=== PATIENT | female | born 1995 | race Caucasian/White ===

== ENCOUNTER 2016-03-10 06:24 | Emergency (ER) | payer MEDICAID ==
[2016-03-10 06:40] VITALS: BP 128/95
[2016-03-10 07:09] LABS: Basophils % (Auto) 0.4 % (0.0-1.8); Eosinophils % (Auto) 0.3 % (0.0-4.3); Hematocrit 41.3 % (30.3-42.9); Hemoglobin 13.9 gm/dl (10.1-14.3); Mean Corpuscular HGB Conc 34 % (30-34); Mean Corpuscular Hemoglobin 30 pg (28-32); Mean Corpuscular Volume 88 fl (79-97); Platelet Count 314 K/mm3 (140-440); Red Blood Count 4.69 M/mm3 (3.65-5.03); Red Cell Distribution Width 12.9 % (13.2-15.2)
[2016-03-10 07:24] LABS: Alanine Aminotransferase 49 units/L (7-56); Albumin 4.8 g/dL (3.9-5); Albumin/Globulin Ratio 1.1 %; Alkaline Phosphatase 72 units/L (35-129); Anion Gap 26 mmol/L; BUN/Creatinine Ratio 13.33; Bilirubin,Total 1.1 mg/dL (0.1-1.2); Blood Urea Nitrogen 8 mg/dL (7-17); Calcium 10.2 mg/dL (8.4-10.2); Carbon Dioxide 14 mmol/L (22-30); Chloride 97.1 mmol/L (98-107); Glucose 90 mg/dL (65-100); Lipase 20 units/L (13-60); Potassium 3.9 mmol/L (3.6-5.0); Sodium 133 mmol/L (137-145)
--- NOTE | 2016-03-13 01:23 | ED Elopement Review ---
ED Pt Elopement review - Results review Lab results: Laboratory Tests 03/10/16 03/10/16 03/10/16 06:55 06:55 06:55 WBC 12.0 H RBC 4.69 Hgb 13.9 Hct 41.3 MCV 88 MCH 30 MCHC 34 RDW 12.9 L Plt Count 314 Lymph % (Auto) 27.3 [place] % (Auto) 8.1 H Eos % (Auto) 0.3 Baso % (Auto) 0.4 Lymph # 3.3 [place] # 1.0 H Eos # 0.0 Baso # 0.0 Seg Neutrophils % 63.9 Seg Neutrophils # 7.7 Sodium 133 L Potassium 3.9 Chloride 97.1 L Carbon Dioxide 14 L Anion Gap 26 BUN 8 Creatinine 0.6 L Estimated GFR > 60 BUN/Creatinine Ratio 13.33 Glucose 90 Calcium 10.2 Total Bilirubin 1.1 AST 42 H ALT 49 Alkaline Phosphatase 72 Total Protein 9.0 H Albumin 4.8 Albumin/Globulin Ratio 1.1 Lipase 20 HCG, Qual Positive - Call Back decision Pt Call Back Decision: Pt to F/U with PMD (tachycardia, low bicarb, will likely benefit from hydration. need md assesment. May return if sx continue and uanble to see md.)
== END 2016-03-10 21:30 | disposition left against medical advice (07) ==
LOC: ED 06:24
DX: O26.891 Other specified pregnancy related conditions, first trimester (principal); R10.9 Unspecified abdominal pain; Z3A.11 11 weeks gestation of pregnancy
CPT/HCPCS: 36415; 80053; 83690; 84703; 85025